=== PATIENT | male | born 1940 | race Caucasian/White ===

== ENCOUNTER 2019-03-02 13:04 | Inpatient (IN) | payer OTHER, MEDICAID ==
[~2019-03-02] VITALS: Ht 177.8 cm; Wt 75.7 kg
[~2019-03-02 13:04] MED LIST: CARV3.1246 PO; DIGO125T79 PO; FAMO20TA8 PO; FAMO40TA7 PO; LIOT25TA11 PO; RAMI2.5C34 PO; RIVA20TA PO
[2019-03-02] MEDS ORDERED: LEVO25TA7 PO (15:06)
--- NOTE | 2019-03-02 15:10 | NUR ---
ADMISSION NOTE Patient was a direct admit from Dr. Houser's office. Patient admitted with diagnosis of aspirtation pneumonia . Patient is awake, alert, oriented X 2 . Patient oriented to hospital room, call light, toileting, pain management and safety-teach back done. Patient informed that will be nurse and that their room number is . Personal belongings checked and Belongings List documented. Call light within reach.
[2019-03-02 15:41] VITALS: BP_SYST 123
[2019-03-02] MEDS ORDERED: ACETAMINOPHEN 325 MG TABLET PO PRN (15:45)
--- NOTE | 2019-03-02 15:45 | NUR ---
CONSULTATION PAGED REASON FOR CONSULTATION:G-TUBE REPLACEMENT WAS CONSULT CALLED?Y PERSON WHO WAS NOTIFIED:BRANDON CONSULTING PHYSICIAN:PEDRO STRAUSS SPACE PHYSICIST SPECIALTY:GI SPACE PHYSICIST PHONE NUMBER:[phone] REQUESTING PHYSICIAN:MICHELLE MARSHALL
--- NOTE | 2019-03-02 15:45 | NUR ---
IV insertion Inserted 22g IV on the right hand using aseptic technique. Patient tolerated well.
[2019-03-02 15:51] LABS: BASOPHILS % (AUTO) 0.3 % (0.0-2.0); EOSINOPHILS # (AUTO) 0.3 K/uL (0.0-0.4); HEMATOCRIT 44.4 % (36-54); HEMOGLOBIN 14.7 g/dL (14.0-18.0); LYMPHOCYTES # (AUTO) 0.8 K/uL (1.0-5.5); LYMPHOCYTES % (AUTO) 16.2 % (20.5-51.5); MEAN CORPUSCULAR HEMOGLOBIN 32 pg (27-31); MEAN CORPUSCULAR HGB CONC 33 % (32-36); MEAN CORPUSCULAR VOLUME 97 fL (79.0-98.0); MONOCYTES # (AUTO) 0.9 K/uL (0.0-1.0); MONOCYTES % (AUTO) 18.1 % (1.7-9.3); NEUTROPHILS # (AUTO) 3.2 K/uL (1.8-7.7); NEUTROPHILS % (AUTO) 60.4 % (40.0-70.0); PLATELET COUNT (AUTO) 180 K/uL (130-430); RED BLOOD CELL COUNT(AUTO) 4.59 MIL/uL (4.2-6.2); RED CELL DISTRIBUTION WIDTH 14.7 % (9.0-15.0); WHITE BLOOD COUNT (AUTO) 5.2 K/uL (4.8-10.8)
[2019-03-02 16:00] VITALS: BP_SYST 123
[2019-03-02] MEDS ORDERED: KETOROLAC TROMETHAMINE 15 MG VIAL ONE (16:03)
[2019-03-02 16:07] LABS: ANION GAP 3 (5-15); CALCIUM 9.5 mg/dL (8.4-11.0); CHLORIDE 107 mmol/L (98-107); CREATININE 0.97 mg/dL (0.55-1.30); GLUCOSE 127 mg/dL (70-99); POTASSIUM 4.2 mmol/L (3.5-5.1); SODIUM SERUM 139 mmol/L (136-145); UREA NITROGEN, BLOOD 30 mg/dL (8-21)
[2019-03-02] MEDS: AZITHROMYCIN 500 MG in NS 250 ML IV SCH (17:02)
--- NOTE | 2019-03-02 18:00 | NUR ---
Tube feeding started Started Jevity 1.2 @ 50. No residuals from G-tube. Tube feeding is to run for [address] Houser's order.
--- NOTE | 2019-03-02 18:47 | NUR ---
Closing Note Patient is resting in bed. Current O2 sat is 95% on 2L. Patient was started in breathing tx. G-tube is running Jevity 1.2 @50. IV is on the right hand 22g, SL. Call light is within reach and bed is in low position. Will endorse care to the oncoming nurse.
--- NOTE | 2019-03-02 19:20 | NUR ---
Initial Note Received patient asleep but easily arousable. Awake, alert and oriented. Bedrest. On O2 at 2L/min via NC. No SOB noted and denies any pain or n/v at this time. Saline lock. NPO. GT feeding infusing. Skin intact and no peripheral edema noted. Repositioned. VS taken and stable. Care and monitoring will be provided. Call light within reach. Bed alarm on and at lowest position at all times. Needs attended. Kept warm and comfortable.
[2019-03-02] MEDS: LevALBUTEROL HCL 1.25 MG/0.5 ML *CONC.* VIAL.NEB (XOPENEX CONC.) INH SCH (19:30)
[2019-03-02 20:00] VITALS: BP_SYST 120
[2019-03-02] MEDS: cefTRIAXone 1 GM in D5W 50 ML IV SCH (20:11)
[2019-03-02] MEDS: guaiFENesin ER 600 MG TAB PO SCH (20:12)
[2019-03-02] MEDS: CARVEDILOL 3.125 MG TABLET (COREG) PO SCH (20:12)
--- NOTE | 2019-03-02 20:37 | NUR ---
RN Note Due meds given, tolerated well. Oral care done for dry mouth. Repositioned. Heels off bed. HOB elevated as requested by patient. Kept comfortable. Addendum: 03/02/19 at 2049 by Brennen Roach RN No residual noted. Flushed free water. IV antibiotic given.
--- NOTE | 2019-03-02 21:30 | NUR ---
RN Note Called patient's Michael and she will come and visit him tomorrow. Patient also asked for his walker and it is at home. No other complaints. Suction was set up. Able to suction himself. Incontinence care done. Barrier cream applied. Kept clean, dry and comfortable.
--- NOTE | 2019-03-02 23:30 | NUR ---
RN Note Incontinence and skin care done. Repositioned. Kept clean, dry and comfortable. No other complaints.
[2019-03-02 23:42] VITALS: BP_SYST 129
[2019-03-03] MEDS: LevALBUTEROL HCL 1.25 MG/0.5 ML *CONC.* VIAL.NEB (XOPENEX CONC.) INH SCH ×4 (00:10→19:54)
--- NOTE | 2019-03-03 00:30 | NUR ---
Incontinence care Incontinence and skin care done. Repositioned. Kept clean, dry and comfortable.
--- NOTE | 2019-03-03 01:30 | NUR ---
RN Note Sleeping at this time. No SOB or grimacing noted.
--- NOTE | 2019-03-03 03:50 | NUR ---
RN Note Patient awake and alert. He wrote that he is dirty. Incontinence and skin care done. Applied barrier cream, repositioned and kept clean and dry. No residual noted. Flushed GT with free water. Suctioned himself through his mouth. Called RT for HHN per patient's request. Needs attended.
--- NOTE | 2019-03-03 04:45 | NUR ---
Sputum collected HHN was given as requested by the patient. Sputum was collected for culture and sent to the lab. Incontinence and skin care done. Repositioned. Kept clean, dry and comfortable.
[2019-03-03] MEDS: LevALBUTEROL HCL 1.25 MG/0.5 ML *CONC.* VIAL.NEB (XOPENEX CONC.) INH PRN ×2 (05:18→17:36)
[2019-03-03] MEDS: LEVOTHYROXINE SODIUM 0.025 MG TABLET PO SCH (06:09)
--- NOTE | 2019-03-03 06:17 | NUR ---
End Note Afebrile. VS stable. No complain of pain, SOB or n/v throughout the night. Coughs occasionally and able to suction himself through the mouth and within reach. On HHN. Repositioned. No BM today. GT feeding will only be until 1400 today. No residual noted. Flushed free water. Heels off bed. Incontinence and skin care provided. Skin, fall and bleeding precautions observed. Care and monitoring provided per protocol. Call light within reach. Bed alarm on and at lowest position at all times. Needs attended. Kept warm and comfortable.
--- NOTE | 2019-03-03 07:46 | NUR ---
OPENING NOTE At initial assessment, patient is sleeping, no s/s of acute distress. Breathing even and unlabored. IV sites on the right hand 22 G patent and intact, saline locked. Gtube feeding running as ordered and tolerating well. Safety, and fall precautions in place, bed low and locked, side rails up x3, call light within reach, will continue to monitor.
[2019-03-03 08:00] VITALS: BP_SYST 120
[2019-03-03] MEDS: guaiFENesin ER 600 MG TAB PO SCH ×2 (08:47→20:21)
[2019-03-03] MEDS: RIVAROXABAN 10 MG TABLET PO SCH (08:48)
[2019-03-03] MEDS: CARVEDILOL 3.125 MG TABLET (COREG) PO SCH ×2 (08:49→20:20)
[2019-03-03] MEDS: DIGOXIN 0.125 MG TABLET PO SCH (08:49)
--- NOTE | 2019-03-03 10:18 | NUR ---
Nutrition Update Haris Scale 15 noted. Pt admitted for pneumonia. Diet: Jevity 1.5 at 50 ml/hr, Free Water Flush: 150 ml q8h via GT + NPO BMI: 24 kg/m2 RD to follow per nutrition care standards.
[2019-03-03 12:00] VITALS: BP_SYST 111
--- NOTE | 2019-03-03 12:31 | NUR ---
ROUNDS Patient is sleeping comfortably in bed, no s/s of acute distress noted. Breathing even and unlabored, receiving 2L O2 via nasal cannula. Tolerating Gtube feeding rate. Safety precautions observed, call light within reach, will continue to monitor.
--- NOTE | 2019-03-03 14:00 | NUR ---
ROUNDS Patient is awake, no c/o pain/discomfort. Breathing even and unlabored. Gtube feeding stopped at this time as ordered and tolerating well. Safety precautions observed, call light within reach, will continue to monitor.
[2019-03-03] MEDS: AZITHROMYCIN 500 MG in NS 250 ML IV SCH (15:18)
--- NOTE | 2019-03-03 15:30 | NUR ---
REFUSED PILLOW SUPPORT Patient is awake, repositioned for comfort. Patient refused pillow support. Will continue to reposition every 2 hours and provide perineal care as needed.
--- NOTE | 2019-03-03 16:10 | NUR ---
PATIENT ASKED TO BE REPOSITIONED PATIENT WAS TURNED TO HIS RIGHT SIDE HE REQUESTED PILLOW WAS PLACED .PATIENT PUSHED THE CALL LIGHT AND ASKED TO REMOVE THE PILLOW AFTER 5 MINUTES OF THE PILLOW BEING PLACED .RN NOTIFIED PATIENT REFUSED TO REPOSITION WILL OFFER AGAIN AT A LATER TIME .
--- NOTE | 2019-03-03 16:13 | NUR ---
ROUNDS Patient is awake, breathing even and unlabored. No respiratory distress noted. No s/s of acute distress. at the bedside. Safety precautions observed, call light within reach.
[2019-03-03 16:20] VITALS: BP_SYST 112
--- NOTE | 2019-03-03 17:06 | NUR ---
Dietitian Recommendations - Recommend Jevity 1.2 at 70 ml/hr, Free Water Flush: 250 ml Q6H which provides 2016 kcal/day and 93 g Pro and 2356 ml water daily. This provides 106% lower end of caloric needs and 102% of higher end protein needs. LP, RD Please refer to Nutrition Assessment for details.
--- NOTE | 2019-03-03 18:25 | NUR ---
CLOSING NOTE Patient is resting with eyes closed, but easily arousable, no s/s of acute distress. No respiratory distress noted, breathing even and unlabored. IV site remains patent and intact, saline locked. GTube feeding running as ordered. Safety and fall precautions in place, bed low and locked, side rails up x3, call light within reach. All needs met and anticipated throughout the shift, will endorse plan of care.
[2019-03-03 20:00] VITALS: BP_SYST 106
--- NOTE | 2019-03-03 20:00 | NUR ---
Opening Notes The patient was sleeping upon initially entering the room. The patient was easily arousable with light touch and name. The patient was alert. The patient is not really able to speak and tries to whisper when communicating. He also communicates by writing on the paper at bedside. Upon assessment, g-tube was not patent. Manually cleared g-tube and now patent/flushes with ease. Patient tolerates well. The patient had even and unlabored breathing. The patient received his breathing treatment while initial assessment took place. The patient did not appear to be in any acute distress. The patient denied any pain. Safety measures/fall precautions in place. HOB elevated, bed lowered, and side rails up. Call light is within reach
[2019-03-03] MEDS: cefTRIAXone 1 GM in D5W 50 ML IV SCH (20:20)
--- NOTE | 2019-03-03 22:00 | NUR ---
Nursing Notes Patient is sleeping in bed. Medications were given through the g-tube. G-tube remains patent and flushes with ease. Patient is tolerating feeding rate. Patient's IV (right hand #22) is saline locked. There are no signs of acute distress. Breathing is even and unlabored. Safety measures/fall precautions in place. HOB elevated, bed in low position, and side rails up. Call light is within reach.
[2019-03-04] VITALS (20 sets, daily range): BP systolic 85–165
--- NOTE | 2019-03-04 | NUR ---
Nursing Notes Patient is sleeping in bed. Does not appear to be in any acute distress. G-tube remains patent with residual of 0. Breathing is even and unlabored. Safety measures/fall precautions in place. Bed lowered, HOB elevated, and side rails up. Call light is within reach.
[2019-03-04] MEDS: LevALBUTEROL HCL 1.25 MG/0.5 ML *CONC.* VIAL.NEB (XOPENEX CONC.) INH SCH ×4 (00:48→19:30)
--- NOTE | 2019-03-04 02:00 | NUR ---
Nursing notes Patient is sleeping. Breathing is even and unlabored. Patient does not appear in acute distress. IV site is clean, patent and dry. IV is saline locked. G-tube remains patent. Safety measures/fall precautions in place. HOB elevated, side rails up, and bed position lowered. Needs addressed.
--- NOTE | 2019-03-04 04:00 | NUR ---
Nursing Notes Patient was asleep but easily aroused as he woke up when we changed the tubing for the g-tube feedings. The patient was alert. Breathing was even and unlabored. The patient did not appear to be in any acute distress. The patient's IV site is patent, clean, and dry. IV is saline locked. The patient's g-tube is patent with a residual of 5. Safety measures/fall precautions in place. HOB elevated, bed in low position, and side rails are up. Call light is in place and needs are addressed. Patient will continue to be assessed and monitored.
[2019-03-04] MEDS: LEVOTHYROXINE SODIUM 0.025 MG TABLET PO SCH (06:05)
--- NOTE | 2019-03-04 06:48 | NUR ---
Closing Notes Patient resting in bed with eyes closed, easily aroused. Patient denies any acute distress or pain at this time. Breathing is even and unlabored. IV site patent/clean/dry, no S/S infection/infiltration noted. Gtube site patent/clean/dry, patient tolerating tube feeding, HOB elevated. Needs addressed throughout shift. Call light in hand, fall precautions in place. Will continue to monitor for changes and safety, and endorse all patient care/needs to oncoming nurse.
--- NOTE | 2019-03-04 07:28 | NUR ---
OPENING NOTE At initial assessment, patient is sleeping comfortably, no s/s of pain/discomfort at this time. Breathing even and unlabored, currently receiving breathing treatment at this time. IV site patent and intact, saline locked. G-Tube feeding running as ordered and tolerating well. Safety and fall precautions in place, bed low and locked, side rails up x2, call light within reach, will continue to monitor.
[2019-03-04] MEDS: CARVEDILOL 3.125 MG TABLET (COREG) PO SCH ×2 (08:43→20:26)
[2019-03-04] MEDS: DIGOXIN 0.125 MG TABLET PO SCH (08:43)
[2019-03-04] MEDS: guaiFENesin ER 600 MG TAB PO SCH ×2 (08:43→20:25)
[2019-03-04] MEDS: RIVAROXABAN 10 MG TABLET PO SCH (08:44)
--- NOTE | 2019-03-04 10:35 | NUR ---
RESPIRATORY DISTRESS RN called by EMBEDDER, patient noted with O2 sat of 41% on 2L O2 via nasal cannula. RT was called, placed patient on nonrebreather mask. Rapid response called. Patient not responding to verbal or tactile command or stimuli. Vital signs taken BP 126/64, pulse 83, blood sugar 174 mg/dL. ER doctor intubated patient at 1042. CO2 level [address] Houser was paged. Patient is sent to ICU. , Michael notified.
--- NOTE | 2019-03-04 10:43 | NUR ---
RT NOTES Pt. intubated by ER w/ 7.5 ETT secured at 23cm lipline. CO2 detector changed to yellow. Bilateral b.s./chest rise noted. @ 1043 pt to vent AC 12 600 100% per ER Dr's order once in ICU. Alarms are set and audible. Post intubation sputum collected. will monitor pt.
--- NOTE | 2019-03-04 10:55 | NUR ---
@1043 RAPID RESPONSE WAS CALLED. PLACED ON NRB 15 LPM FIO2 100%. SPO2 76-78%. @1043 PT WAS INTUBATED BY ER AND TRANSFERRED TO ICU.
--- NOTE | 2019-03-04 10:59 | NUR ---
PAGED STAT PAGED DR PHILLIPS SPOKE WITH TYSHAWN [phone]
--- NOTE | 2019-03-04 11:05 | NUR ---
DR. MUÑOZ NOTIFIED OF PATIENT TRANSFER TO ICU, ORDERS RECEIVED AND CARRIED OUT. WILL CALL DR. LINO TO MANAGE VENT.
--- NOTE | 2019-03-04 11:11 | NUR ---
CONSULTATION CALLED CONSULTING NIMESH LINO SPOKE WITH [place] ORDERING PHYSICIAN: DR MUÑOZ
[2019-03-04] MEDS ORDERED: LORazepam 2 MG/ML VIAL IVP PRN (11:15)
--- NOTE | 2019-03-04 11:45 | NUR ---
Assumed care of pt. Received SBAR report from Shahida CLANCY. Pt in no signs of distress or pain currently but is needing frequent suctioning. Resumed tube feeding and administered H2O flush.
--- NOTE | 2019-03-04 11:50 | NUR ---
PATIENT TRANSFER FROM MED. SURG. POST RAPID RESPONSE. PATIENT CAME IN ORALLY INTUBATED. PLACED COMFORTABLY ON BED, ET TO VENT. ON FIO2 100%, VT 600 AC 12. INITIAL VITALS CHECKED AND RECORDED. SCOPE SHOWS A. FIBRILLATION. WILL CONTINUE TO MONITOR PATIENT. Addendum: 03/04/19 at 1811 by Lakisha Buchanan RN PATIENT CAME IN TO ICU @ 4680
--- NOTE | 2019-03-04 12:05 | NUR ---
RT NOTES Vent settings to AC [address] Green's order. FIO2 titrated to 70% per order to titrate O2 keep saturation >92% RN aware.
[2019-03-04] MEDS ORDERED: 0.45% NACL 1,000 ML IV SCH (12:15)
[2019-03-04 12:46] LABS: BASOPHILS % (AUTO) 0.2 % (0.0-2.0); EOSINOPHILS # (AUTO) 0.1 K/uL (0.0-0.4); EOSINOPHILS % (AUTO) 1.7 % (0.0-4.0); HEMOGLOBIN 14.2 g/dL (14.0-18.0); LYMPHOCYTES # (AUTO) 0.7 K/uL (1.0-5.5); LYMPHOCYTES % (AUTO) 8.3 % (20.5-51.5); MEAN CORPUSCULAR HEMOGLOBIN 32 pg (27-31); MEAN CORPUSCULAR HGB CONC 33 % (32-36); MEAN CORPUSCULAR VOLUME 97 fL (79.0-98.0); MONOCYTES # (AUTO) 0.8 K/uL (0.0-1.0); MONOCYTES % (AUTO) 9.5 % (1.7-9.3); NEUTROPHILS # (AUTO) 6.6 K/uL (1.8-7.7); NEUTROPHILS % (AUTO) 80.3 % (40.0-70.0); PLATELET COUNT (AUTO) 183 K/uL (130-430); RED BLOOD CELL COUNT(AUTO) 4.43 MIL/uL (4.2-6.2); RED CELL DISTRIBUTION WIDTH 14.4 % (9.0-15.0); WHITE BLOOD COUNT (AUTO) 8.2 K/uL (4.8-10.8)
[2019-03-04 12:58] LABS: ANION GAP 7 (5-15); CALCIUM 9.1 mg/dL (8.4-11.0); CHLORIDE 106 mmol/L (98-107); CREATININE 1.05 mg/dL (0.55-1.30); GLUCOSE 132 mg/dL (70-99); POTASSIUM 4.9 mmol/L (3.5-5.1); SODIUM SERUM 142 mmol/L (136-145); UREA NITROGEN, BLOOD 29 mg/dL (8-21)
[2019-03-04] MEDS ORDERED: PIPERACILLIN/TAZO 3.375/DEX-IS 50 ML IV ONE (13:00)
[2019-03-04] MEDS ORDERED: methylPREDNISolone SOD SUCC 40 MG/ML VIAL IVP ONE (13:00)
--- NOTE | 2019-03-04 13:00 | NUR ---
BUCKNER CATH: # 16 FR Buckner catheter with 10 cc bulb inserted with use of sterile technique. Bulb inflated with 10 cc sterile water. Immediate return of yellow urine noted. Bedside drainage bag placed below level of bladder. Urine sample collected and sent to lab. Pt tolerated procedure well.
[2019-03-04 13:06] LABS: ALANINE AMINOTRANSFERASE 48 U/L (12-78); ALBUMIN 2.2 g/dL (3.4-4.8); ASPARTATE AMINOTRANSFERASE 45 U/L (10-37); TOTAL BILIRUBIN 0.6 mg/dL (0.0-1.0)
[2019-03-04] MEDS ORDERED: ACETAMINOPHEN 650 MG/20.3 ML UDC GT PRN (13:15)
[2019-03-04] MEDS: IPRATROPIUM BROM 0.5 MG/2.5 ML VIAL.NEB (ATROVENT) INH SCH ×2 (13:16→19:30)
--- NOTE | 2019-03-04 13:16 | NUR ---
RT NOTES FIO2 to 60% per titration order. No adverse reactions noted. Will monitor pt. Addendum: 03/04/19 at 1338 by Brisa Cr RT Amended: Links added.
--- NOTE | 2019-03-04 13:30 | NUR ---
Administered CHG bath and skin care.
[2019-03-04] MEDS ORDERED: VANCOMYCIN HCL 1,500 MG in NS 250 ML IV SCH (15:00)
[2019-03-04] MEDS ORDERED: ASPIRIN 81 MG TAB.CHEW GT ONE (15:00)
[2019-03-04] MEDS: MORPHINE 4 MG/ML INJ. SYRINGE IVP PRN (15:11)
--- NOTE | 2019-03-04 15:32 | NUR ---
RT NOTES FIO2 TO 50% per titration order. No adverse reactions noted. @1535 Push ETT 1cm down, secured at 24cm per order. No adverse reactions noted. Bilateral B.S/chest rise noted. Addendum: 03/04/19 at 1551 by Brisa Cr RT Amended: Links added.
--- NOTE | 2019-03-04 15:35 | NUR ---
Vent change: ETT 24 cm lip line, FiO2 changed to 50% by Brisa SUMNER per Dr. Green's orders
[2019-03-04 16:06] LABS: BILIRUBIN,URINE NEGATIVE (NEGATIVE); CLARITY/URINE CLEAR (CLEAR); COLOR,URINE YELLOW (YELLOW); GLUCOSE,URINE NEGATIVE (NEGATIVE); KETONES,URINE NEGATIVE (NEGATIVE); LEUKOCYTE ESTERASE ,URINE NEGATIVE (NEGATIVE); NITRITE, URINE NEGATIVE (NEGATIVE); PROTEIN URINE 1+ (NEGATIVE); UROBILINOGEN,URINE 0.2 (0.2-1.0)
[2019-03-04 16:09] LABS: BLOOD, URINE TRACE (NEGATIVE)
[2019-03-04 16:12] LABS: BACTERIA,URINE FEW /HPF (None Seen); MUCUS,URINE None Seen /LPF (None Seen); WBC,URINE 0-3 /HPF (0-3)
--- NOTE | 2019-03-04 17:17 | NUR ---
CALLED PAGED DR MUÑOZ REGARDING STAT ORDERS
[2019-03-04] MEDS ORDERED: NOREPINEPHRINE BITARTRATE 4 MG in NS 246 ML IV PRN (17:30)
[2019-03-04] MEDS ORDERED: NS 500 ML IV ONE (17:30)
[2019-03-04] MEDS ORDERED: PIPERACILLIN/TAZO 3.375/DEX-IS 50 ML IV SCH (18:00)
--- NOTE | 2019-03-04 18:00 | NUR ---
Resumed tube feeding, administered H2O flush. Pt in no signs of pain or distress.
[2019-03-04] MEDS: PIPERACILLIN/TAZO 3.375/DEX-IS 50 ML IV SCH ×2 (18:21→23:06)
[2019-03-04] MEDS: KCL 20 mEq in D5NS 1000 mL 1,000 ML IV SCH (18:21)
--- NOTE | 2019-03-04 19:12 | NUR ---
Endorsed plan of care to Destin CLANCY via SBAR and bedside round. Pt's daughter at bedside. No signs of pain or distress noted.
--- NOTE | 2019-03-04 19:35 | NUR ---
PM Assessment Pt in bed. AAO. Pt able to follow commands, but unable to speak d/t intubation. Makes request through gestures and/or writing. Pt is 100% Paced. Pt has Vent. Settings: ETT 7.5, AC 16, FIO2 50%, TV 450, PEEP 5. Pt saturating in the high 90s. Pt has KELSEY 18g and RT hand 22g in palce. Sites C/D/I. No s/s of infiltration noted. Pt has G-tube in place running Jevity 1.2 @70mL/hr. No residual noted. Pt has Gil catheter in place draining yellow urine to gravity. Bed locked in lowest position, safety precautions in place, and call light in reach. Will continue to monitor.
[2019-03-04] MEDS: PANTOPRAZOLE SODIUM 40 MG/VIAL (PROTONIX) IVP SCH (20:25)
[2019-03-04] MEDS: AZITHROMYCIN 500 MG in NS 250 ML IV SCH (20:25)
[2019-03-04] MEDS: methylPREDNISolone SOD SUCC 40 MG/ML VIAL IVP SCH (23:06)
[2019-03-05] VITALS (30 sets, daily range): BP systolic 98–136
[2019-03-05] MEDS: LevALBUTEROL HCL 1.25 MG/0.5 ML *CONC.* VIAL.NEB (XOPENEX CONC.) INH SCH ×4 (01:08→19:55)
[2019-03-05] MEDS: IPRATROPIUM BROM 0.5 MG/2.5 ML VIAL.NEB (ATROVENT) INH SCH ×4 (01:09→19:55)
--- NOTE | 2019-03-05 02:10 | NUR ---
RN Rounds Pt in bed asleep. No s/s of distress noted. VSS. No change in vent settings. Will continue to monitor.
[2019-03-05] MEDS: KCL 20 mEq in D5NS 1000 mL 1,000 ML IV SCH ×3 (03:07→23:17)
[2019-03-05] MEDS: LevALBUTEROL HCL 1.25 MG/0.5 ML *CONC.* VIAL.NEB (XOPENEX CONC.) INH PRN (03:10)
[2019-03-05 05:14] LABS: BASOPHILS % (AUTO) 0.2 % (0.0-2.0); HEMATOCRIT 42.7 % (36-54); HEMOGLOBIN 13.8 g/dL (14.0-18.0); LYMPHOCYTES # (AUTO) 0.5 K/uL (1.0-5.5); LYMPHOCYTES % (AUTO) 9.5 % (20.5-51.5); MEAN CORPUSCULAR HEMOGLOBIN 32 pg (27-31); MEAN CORPUSCULAR HGB CONC 32 % (32-36); MEAN CORPUSCULAR VOLUME 98 fL (79.0-98.0); MONOCYTES # (AUTO) 0.2 K/uL (0.0-1.0); MONOCYTES % (AUTO) 3.6 % (1.7-9.3); NEUTROPHILS # (AUTO) 4.3 K/uL (1.8-7.7); NEUTROPHILS % (AUTO) 86.7 % (40.0-70.0); PLATELET COUNT (AUTO) 165 K/uL (130-430); RED BLOOD CELL COUNT(AUTO) 4.34 MIL/uL (4.2-6.2); RED CELL DISTRIBUTION WIDTH 14.8 % (9.0-15.0)
[2019-03-05 05:17] LABS: ANION GAP 8 (5-15); CALCIUM 8.4 mg/dL (8.4-11.0); CHLORIDE 107 mmol/L (98-107); CREATININE 1.16 mg/dL (0.55-1.30); GLUCOSE 299 mg/dL (70-99); POTASSIUM 4.9 mmol/L (3.5-5.1); SODIUM SERUM 142 mmol/L (136-145); UREA NITROGEN, BLOOD 32 mg/dL (8-21)
[2019-03-05 05:26] LABS: ALANINE AMINOTRANSFERASE 46 U/L (12-78); ASPARTATE AMINOTRANSFERASE 37 U/L (10-37); TOTAL BILIRUBIN 0.6 mg/dL (0.0-1.0)
[2019-03-05] MEDS: methylPREDNISolone SOD SUCC 40 MG/ML VIAL IVP SCH ×3 (06:12→21:55)
[2019-03-05] MEDS: PIPERACILLIN/TAZO 3.375/DEX-IS 50 ML IV SCH ×4 (06:13→23:17)
--- NOTE | 2019-03-05 06:25 | NUR ---
MD called SPoke with Dr. Green regarding Pt's self extubation, and results from ABGs. MD aware and no new orders noted. Dr. Green to be called with results from Chest X-ray. Will endorse to oncoming RN.
--- NOTE | 2019-03-05 06:55 | NUR ---
Closing Note Pt in bed AAO. Pt 100% paced. ON NC @3L saturating in the mid 90s. Pt having SOB, and audible crackles noted as of 0645. RT in to give breathing Tx. Pt has KELSEY 18g in place. Site is C/D/I. No s/s of infiltration noted. Rt hand 22g d/c'ed d/t bleeding. Pt has sánchez catheter draining yellow to gravity. Pt has G-tube in place. Feeding on hold, d/t to residual of 170ml. To be checked @0730. Bed locked in lowest position, safety precautions in place, and call light in reach, Will endorse to oncoming RN.
--- NOTE | 2019-03-05 07:05 | NUR ---
Spoke to Venkata from Pharmacy. Made aware of Synthroid not in Pyxsis. Noted and told he would replace it. Will endorse administration of medication to oncoming Nurse.
--- NOTE | 2019-03-05 07:26 | NUR ---
Endorsement Report given to oncoming nurse at bedside via SBAR approach.
--- NOTE | 2019-03-05 07:45 | NUR ---
Patient noted to be short of breath. Head of bed up for comfort. Pt verbalizes, " hard to breath". RT at bedside for ABG. Will call ER MD to evaluate patient and re-intubate patient if needed. Call placed to Dr. Green for orders.
--- NOTE | 2019-03-05 07:46 | NUR ---
AM ASSESSMENT. PATIENT VERBALIZED THRU WRITING HIS WORDS ON A PIECE OF PAPER, DYSPNEIC, REPOSITIONED UP IN BED TO IMPROVE HIS BREATHING, STAYED WITH PATIENT, CONTINUE TO MONITOR.
--- NOTE | 2019-03-05 07:56 | NUR ---
Intubation RT, RN, ER MD at bedside. Rales bilat lungs, pt lethargic. Pt not know to be of DNR status. 7.[address] Michelle, +CO2 exchange, lung sounds present bilaterally. 23cm at the lip. Pt given 60mg Succ prior to intubation for sedation.
--- NOTE | 2019-03-05 07:56 | NUR ---
RT NOTES Pt. was intubated by Dr Forrest w/ 7.5 ETT secured at 23cm. CO2 detector changed to yellow. Bilat. b/s/chest rise noted. Placed pt on vent AC 16 450 +5 same settings pt was on and ok'd by Dr Forrest. Per splicer machine operatorASTON Pinedo, FIO2 to 100%.
--- NOTE | 2019-03-05 07:58 | NUR ---
Dr. Green updated on patient present condition, with orders carried out.
[2019-03-05] MEDS ORDERED: MIDAZOLAM HCL 2 MG/2 ML VIAL (VERSED) IVP ONE (08:00)
[2019-03-05] MEDS ORDERED: SUCCINYLCHOLINE CHLORIDE 20 MG/ML(QUELICIN) IVP ONE ×2 (08:00→11:17)
[2019-03-05] MEDS ORDERED: MIDAZOLAM HCL 2 MG/2 ML VIAL (VERSED) ONE (08:07)
[2019-03-05] MEDS: LORazepam 2 MG/ML VIAL IVP PRN ×6 (08:23→23:16)
--- NOTE | 2019-03-05 08:23 | NUR ---
MEDS. ATIVAN 1 MG IVP GIVEN FOR PT'S RESTLESSNESS, WILL CONTINUE TO MONITOR.
--- NOTE | 2019-03-05 08:44 | NUR ---
GASTRO ENTEROLOGIST. DR SALAZAR IN THE ROOM, EXAMINED PT. NEW ORDERS RECEIVED, TO RESUME TUBE FEEDING AT 10 ML PER HOUR, IF GASTRIC RESIDUAL IS LESS THAN 100 ML, THEN MAY GRADUALLY INCREASE TO 10 ML Q2H, TO REACH THE GOAL OF 70 ML PER HOUR. WATER FLUSHES 50 ML QH.
[2019-03-05] MEDS: CARVEDILOL 3.125 MG TABLET (COREG) PO SCH ×2 (09:00→20:50)
--- NOTE | 2019-03-05 09:15 | NUR ---
RT NOTES FIO2 to 70% per ABG results and outstanding titration order. No adverse reactions noted. Will monitor pt. Addendum: 03/05/19 at 0939 by Brisa Cr RT Amended: Links added.
--- NOTE | 2019-03-05 09:28 | NUR ---
Vent settings to AC [address] Green's order. Will monitor pt.
[2019-03-05] MEDS: PANTOPRAZOLE SODIUM 40 MG/VIAL (PROTONIX) IVP SCH ×2 (09:50→20:50)
[2019-03-05] MEDS: DIGOXIN 0.125 MG TABLET PO SCH (09:51)
[2019-03-05] MEDS: LEVOTHYROXINE SODIUM 0.025 MG TABLET PO SCH (09:51)
[2019-03-05] MEDS: guaiFENesin ER 600 MG TAB PO SCH (09:51)
[2019-03-05] MEDS: MORPHINE 4 MG/ML INJ. SYRINGE IVP PRN ×2 (09:58→17:50)
--- NOTE | 2019-03-05 09:58 | NUR ---
MEDS. MORPHINE 2 MG IVP GIVEN FOR PATIENT'S COMFORT.
[2019-03-05] MEDS: RIVAROXABAN 10 MG TABLET PO SCH (11:12)
--- NOTE | 2019-03-05 11:25 | NUR ---
FIO2 to 60%. Will monitor pt Addendum: 03/05/19 at 1150 [address] Brisa Cr RT Amended: Links added.
--- NOTE | 2019-03-05 12:30 | NUR ---
INFECTIOUS DISEASE . DR PAZ CAME IN TO EVALUATE PATIENT. NEW ORDERS RECEIVED, DECREASE IVF TO 100 ML PER HR.
--- NOTE | 2019-03-05 15:35 | NUR ---
FIO2 to 50% Addendum: 03/05/19 at 1601 by Brisa Cr RT Amended: Links added.
--- NOTE | 2019-03-05 16:37 | NUR ---
Nutrition F/U Admitting Diagnosis Pneumonia Reviewed Pertinent Medical/Surgical Hx Medical Record Patient Family Member Primary RN Medical History Comment: PMH per MD note: congenital destructive muscular dystrophy, paroxysmal atrial fibrilation, hypothyroidism, asthma Updated per MD note: aspiration pneumonia, paroxysmal atrial fibrillation, dysphagia Subjective Information Pt seen sleeping with RN and [id number] at bedside upon visit. Bed wt recorded at 171 lbs, which may be skewed d/t blankets and pillows on the bed. TF seen infusing at 20 ml/hr with a total of 33 ml delivered so far today. Per EMR, IV total: 1650 ml and TF total 600 ml; abdomen noted as soft, non-distended and active bowel sounds present. Per RN, pt is tolerating TF besides residuals of 170 ml this AM in which the TF was stopped. Current TF regimen provides: 576 kcals, 27 g Pro, and 387 ml/day which meets 29% of lower end calorie needs and 28% of lower end protein needs. Current Diet Order/Nutrition Support Jevity 1.2 at 10 ml/hr, increase Q2H to 10 ml more til max of 70 Free Water Flush: 50 ml q6h via GT x0 day Patient/Significant Other Unable To Verbalize Education Provided Not Indicated Pertinent Medications Synthroid, Azithromycin, Solu-medrol, protonix IV Pertinent Labs BG 299 H, POC BG 174 H, Alb 2 L BUN 32 H Height (Feet) 5 feet Height (Inches) 10.00 inches Weight (Pounds) 167 pounds Weight (Calculated Kilograms) 75.878692 kilograms Patient Weight 75.75 kg Body Mass Index 23.96 kg/m2 %IBW 101 [place]/Adjusted Body Weight IBW: 166 lbs, 75 kg Recent Weight Change No - Per RN note; unable to verify Weight Status Appropriate Difficulty With: Swallowing Food Allergies unable to verify Usual Diet At Home GT -- no formula specified via EMR Skin Integrity Comment: Haris Score: 15 w/ coccyx erythema Current % PO NPO NEW Estimated Energy Expenditure (kcals/day) 1996 kcal/day (PSU used for intubated/critical illness) NEW Estimated Protein Required (g/day) 98-152 g/day (1.3-2 g/kg CBW for vent support) NEW Estimated Fluid Required (l/day) 1.9 L/day (25 ml/kg CBW for geriatric maintenance) Problem/Etiology/Signs/Symptoms (modified) Inadequate enteral nutrition related to current tube feeding regimen as evidenced by currently infusing TF meets 30% of lower end calorie needs and 36% of lower end protein needs. Expected Outcomes/Goals - Monitor pt tube feeding tolerance w/ goal of pt meeting at least 50% estimated nutritional needs, labs trending WNL, skin integrity, and wt maintenance. *Ongoing Dietitian Recommendations - Recommend Jevity 1.2 at 70 ml/hr, Free Water Flush: 50 ml Q6H which provides 2016 kcal/day and 93 g Pro and 1556 ml water daily. This provides 101% of estimated caloric needs and 95% of lower end of estimatedprotein needs. Follow Up High Risk: F/U in 2-3 days Signed: 03/05/19 at 1637 by Darleen QUINTANILLA <Co-Signature Required> Co-Signed: 03/05/19 at [address]
--- NOTE | 2019-03-05 17:15 | NUR ---
FIO2 to 40% Addendum: 03/05/19 at 1742 by Brisa Cr RT Amended: Links added.
--- NOTE | 2019-03-05 17:22 | NUR ---
Dietitian Recommendations - Recommend Jevity 1.2 at 70 ml/hr, Free Water Flush: 50 ml Q6H which provides 2016 kcal/day and 93 g Pro and 1556 ml water daily. This provides 101% of estimated caloric needs and 95% of lower end of estimated protein needs. LP, RD Please refer to Nutrition F/U for details.
--- NOTE | 2019-03-05 17:35 | NUR ---
MEDS. OBSERVED PT TRYING TO TURN HIS SHOULDER TO THE SIDE AND LIFTING HIS LEG, ATIVAN 1 MG IVP GIVEN, REPOSITIONED IN BED TO PREVENT PATIENT FROM ANY INJURY.
--- NOTE | 2019-03-05 17:50 | NUR ---
MEDS MEDICATED PATIENT WITH MORPHINE 2 MG IVP, PT NOTED WITH INCREASE AGITATION, ALL LINENS WERE PUSHED DOWN TO HIS BOTTOM PART OF THE BED, CHANGED PT'S POSITION.
--- NOTE | 2019-03-05 18:30 | NUR ---
ANXIETY. PT UNCOOPERATIVE, MOVING HIS ARMS TOWARDS HIS FACE DESPITE TEACHINGS, RESTRAINTS TO WRISTS APPLIED TO KEEP TUBES INTACT.
[2019-03-05] MEDS: AZITHROMYCIN 500 MG in NS 250 ML IV SCH (18:35)
--- NOTE | 2019-03-05 19:30 | NUR ---
PM ASSESSMENT Pt in bed w/ eyes closed resting comfortably. No signs of acute distress or discomfort noted. VSS w/ paced seen on the monitor. 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 Pt intubated w/ vent settings: AC 20, TV 450, FIO2 40%, and PEEP of 5, tolerating well w/ O2 sats 100% and even and unlabored breathing. Pt has a R UA IV 18g, c/d/i. Pt has a g tube infusing tubefeeding, site c/d/i. Bilateral wrist restraints noted. Gil cath noted draining urine to gravity. Pt doesn't verbalize any other needs at this time. Bed is locked and in lowest position, call light w/in reach will continue to monitor.
[2019-03-05] MEDS: MUPIROCIN 2% TOPICAL OINTMENT 22 GM NS SCH (20:50)
--- NOTE | 2019-03-05 23:16 | NUR ---
Pt appearing restless at this time. Medicated pt w/ ativan IVP per MD order. Pt tolerated well, will continue to monitor.
[2019-03-06] VITALS (34 sets, daily range): BP systolic 113–157
[2019-03-06] MEDS: LORazepam 2 MG/ML VIAL IVP PRN ×9 (00:40→23:48)
[2019-03-06] MEDS: MORPHINE 4 MG/ML INJ. SYRINGE IVP PRN ×3 (01:03→18:56)
[2019-03-06] MEDS: IPRATROPIUM BROM 0.5 MG/2.5 ML VIAL.NEB (ATROVENT) INH SCH ×4 (01:38→19:44)
[2019-03-06] MEDS: LevALBUTEROL HCL 1.25 MG/0.5 ML *CONC.* VIAL.NEB (XOPENEX CONC.) INH SCH ×4 (01:38→19:44)
--- NOTE | 2019-03-06 04:10 | NUR ---
CHG CHG bath given to pt at this time. Pt tolerated well. Will continue to monitor pt.
[2019-03-06] MEDS: methylPREDNISolone SOD SUCC 40 MG/ML VIAL IVP SCH ×3 (05:34→21:47)
[2019-03-06] MEDS: PIPERACILLIN/TAZO 3.375/DEX-IS 50 ML IV SCH ×4 (05:34→23:51)
--- NOTE | 2019-03-06 06:00 | NUR ---
IV PLACEMENT: #22 gauge angiocath placed to Left AC. Use of asceptic technique. Opsite placed over site. Blood return noted. Flushed with 10cc of normal saline. No evidence of infiltration noted. Patient tolerated well. Will continue to monitor.
[2019-03-06] MEDS: LEVOTHYROXINE SODIUM 0.025 MG TABLET PO SCH (06:16)
[2019-03-06 06:26] LABS: BASOPHILS % (AUTO) 0.1 % (0.0-2.0); EOSINOPHILS % (AUTO) 0.1 % (0.0-4.0); HEMATOCRIT 40.4 % (36-54); HEMOGLOBIN 13.1 g/dL (14.0-18.0); LYMPHOCYTES # (AUTO) 0.5 K/uL (1.0-5.5); LYMPHOCYTES % (AUTO) 7.7 % (20.5-51.5); MEAN CORPUSCULAR HEMOGLOBIN 32 pg (27-31); MEAN CORPUSCULAR HGB CONC 32 % (32-36); MEAN CORPUSCULAR VOLUME 98 fL (79.0-98.0); MONOCYTES # (AUTO) 0.3 K/uL (0.0-1.0); NEUTROPHILS # (AUTO) 5.4 K/uL (1.8-7.7); NEUTROPHILS % (AUTO) 87.1 % (40.0-70.0); PLATELET COUNT (AUTO) 175 K/uL (130-430); RED BLOOD CELL COUNT(AUTO) 4.11 MIL/uL (4.2-6.2); RED CELL DISTRIBUTION WIDTH 14.4 % (9.0-15.0); WHITE BLOOD COUNT (AUTO) 6.2 K/uL (4.8-10.8)
[2019-03-06 06:36] LABS: ANION GAP 3 (5-15); CALCIUM 7.6 mg/dL (8.4-11.0); CHLORIDE 114 mmol/L (98-107); CREATININE 0.91 mg/dL (0.55-1.30); GLUCOSE 227 mg/dL (70-99); POTASSIUM 4.7 mmol/L (3.5-5.1); SODIUM SERUM 146 mmol/L (136-145); UREA NITROGEN, BLOOD 26 mg/dL (8-21)
[2019-03-06 06:43] LABS: ALANINE AMINOTRANSFERASE 54 U/L (12-78); ALBUMIN 1.9 g/dL (3.4-4.8); ASPARTATE AMINOTRANSFERASE 35 U/L (10-37); TOTAL BILIRUBIN 0.3 mg/dL (0.0-1.0)
--- NOTE | 2019-03-06 07:15 | NUR ---
ENDORSEMENT Report given to Annalee CLANCY using SBAR format and pt care was endorsed. Pt in bed w/ eyes closed resting comfortably. No signs of acute distress or discomfort noted.
--- NOTE | 2019-03-06 07:20 | NUR ---
Opening Note Patient received asleep in bed. Patient on security monitor with A-fib. Patient intubated and on mechanical ventilator with settings of AC 20, TV 450, FiO2 40%, PEEP 5. Patient has a right upper arm 18 gauge IV infusing D5 NS w/ 20 meq KCL @ 100 ml/hr. Patient also has a left AC 22 gauge IV patent, flushing, and saline-locked. Patient has a g-tube infusing Jevity 1.2 @ 70 ml/hr. Patient has a sánchez catheter draining yellow urine. Skin intact. Safety precautions observed. Patient on contact isolation.
--- NOTE | 2019-03-06 07:30 | NUR ---
RN Update RT observed @ bedside. No distress noted.
[2019-03-06] MEDS: DIGOXIN 0.125 MG TABLET PO SCH (08:20)
[2019-03-06] MEDS: PANTOPRAZOLE SODIUM 40 MG/VIAL (PROTONIX) IVP SCH ×2 (08:20→20:13)
[2019-03-06] MEDS: MUPIROCIN 2% TOPICAL OINTMENT 22 GM NS SCH ×2 (08:21→20:13)
[2019-03-06] MEDS: CARVEDILOL 3.125 MG TABLET (COREG) PO SCH ×2 (08:21→20:14)
[2019-03-06] MEDS: RIVAROXABAN 10 MG TABLET PO SCH (08:40)
--- NOTE | 2019-03-06 10:00 | NUR ---
RT NOTES- 30%FIO2 DECREASED FIO2 TO 30%. RN LYLE MADE AWARE.
--- NOTE | 2019-03-06 10:05 | NUR ---
Vent settings update FiO2 changed to 30%. Patient tolerating well. No signs of distress noted.
[2019-03-06] MEDS: KCL 20 mEq in D5NS 1000 mL 1,000 ML IV SCH (10:27)
--- NOTE | 2019-03-06 12:00 | NUR ---
RN Update Patient sleeping comfortably in bed. No signs of agitation or distress noted. Safety precautions enforced.
--- NOTE | 2019-03-06 14:10 | NUR ---
MD Rounds Dr. Green @ bedside. New orders received and will be carried out.
--- NOTE | 2019-03-06 15:15 | NUR ---
RT NOTES- SIMV SETTING PT PLACED ON SIMV 10, PS10, PEEP 5, FIO2 30% PER DR. LINO. TOLERATING SETTING WELL. RN LYLE MADE AWARE. WILL CONTINUE MONITORING.
--- NOTE | 2019-03-06 15:15 | NUR ---
Vent setting update Vent settings changed per MD order. Patient tolerating well. No signs of acute distress noted.
--- NOTE | 2019-03-06 19:06 | NUR ---
Closing Note Patient endorsed to second shift supervisor RN using SBAR format. Patient medicated for anxiety. Will continue to monitor. Safety and contact precautions observed.
--- NOTE | 2019-03-06 19:15 | NUR ---
PM ASSESSMENT Pt in bed w/ eyes closed resting comfortably. No signs of acute distress or discomfort noted. VSS w/ paced seen on the monitor. 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 Pt intubated w/ vent settings: SIMV 10, TV 450, FIO2 30%, PEEP of 5, and PS 10 tolerating well w/ O2 sats 97% and even and unlabored breathing. Pt has a R UA IV 18g and L AC 22g c/d/i. Pt has a g tube infusing tubefeeding, site c/d/i. Bilateral wrist restraints noted. Gil cath noted draining urine to gravity. Pt doesn't verbalize any other needs at this time. Bed is locked and in lowest position, call light w/in reach will continue to monitor.
[2019-03-06] MEDS: LINEZOLID 300 ML IV SCH (20:14)
--- NOTE | 2019-03-06 20:43 | NUR ---
ELLIOTT machine placed on pt's bed. pt tolerated well, will continue to monitor.
--- NOTE | 2019-03-06 22:00 | NUR ---
CHG CHG bath given to pt at this time. Pt tolerated well, will continue to monitor.
[2019-03-07] VITALS (30 sets, daily range): BP systolic 125–168
[2019-03-07] MEDS: MORPHINE 4 MG/ML INJ. SYRINGE IVP PRN ×2 (00:07→21:51)
[2019-03-07] MEDS: LevALBUTEROL HCL 1.25 MG/0.5 ML *CONC.* VIAL.NEB (XOPENEX CONC.) INH SCH ×4 (01:05→20:01)
[2019-03-07] MEDS: IPRATROPIUM BROM 0.5 MG/2.5 ML VIAL.NEB (ATROVENT) INH SCH ×4 (01:05→20:01)
[2019-03-07] MEDS: KCL 20 mEq in D5NS 1000 mL 1,000 ML IV SCH (02:26)
[2019-03-07] MEDS: LORazepam 2 MG/ML VIAL IVP PRN ×5 (03:06→21:50)
--- NOTE | 2019-03-07 03:06 | NUR ---
Pt getting restless at this time, kicking linens and pillows off the bed. Medicated pt w/ ativan per MD order. Pt tolerated well, will continue to monitor.
[2019-03-07] MEDS: PIPERACILLIN/TAZO 3.375/DEX-IS 50 ML IV SCH ×4 (05:05→23:54)
[2019-03-07] MEDS: methylPREDNISolone SOD SUCC 40 MG/ML VIAL IVP SCH ×2 (05:05→20:45)
[2019-03-07 05:14] LABS: BASOPHILS % (AUTO) 0.2 % (0.0-2.0); EOSINOPHILS % (AUTO) 0.7 % (0.0-4.0); HEMOGLOBIN 13.3 g/dL (14.0-18.0); LYMPHOCYTES # (AUTO) 0.7 K/uL (1.0-5.5); LYMPHOCYTES % (AUTO) 12.3 % (20.5-51.5); MEAN CORPUSCULAR HEMOGLOBIN 32 pg (27-31); MEAN CORPUSCULAR HGB CONC 32 % (32-36); MEAN CORPUSCULAR VOLUME 98 fL (79.0-98.0); MONOCYTES # (AUTO) 0.3 K/uL (0.0-1.0); MONOCYTES % (AUTO) 4.7 % (1.7-9.3); NEUTROPHILS # (AUTO) 4.7 K/uL (1.8-7.7); NEUTROPHILS % (AUTO) 82.1 % (40.0-70.0); PLATELET COUNT (AUTO) 187 K/uL (130-430); RED CELL DISTRIBUTION WIDTH 14.6 % (9.0-15.0); WHITE BLOOD COUNT (AUTO) 5.8 K/uL (4.8-10.8)
--- NOTE | 2019-03-07 05:30 | NUR ---
IV PLACEMENT: #20 gauge angiocath placed to pt's left Upper Arm. Use of asceptic technique. Opsite placed over site. Blood return noted. Flushed with 10cc of normal saline. No evidence of infiltration noted. Patient tolerated well. Will continue to monitor.
[2019-03-07 05:50] LABS: ANION GAP 2 (5-15); CALCIUM 7.9 mg/dL (8.4-11.0); CHLORIDE 115 mmol/L (98-107); CREATININE 0.86 mg/dL (0.55-1.30); GLUCOSE 196 mg/dL (70-99); POTASSIUM 4.9 mmol/L (3.5-5.1); SODIUM SERUM 144 mmol/L (136-145); UREA NITROGEN, BLOOD 26 mg/dL (8-21)
[2019-03-07] MEDS: LEVOTHYROXINE SODIUM 0.025 MG TABLET PO SCH (06:11)
--- NOTE | 2019-03-07 07:15 | NUR ---
ENDORSEMENT Report given to Elijah CLANCY using SBAR format and pt care was endorsed. Pt in bed w/ eyes closed resting comfortably, no signs of acute distress or discomfort noted.
--- NOTE | 2019-03-07 07:24 | NUR ---
Opening Note Received plan of care from endorsing nurse, Eric CLANCY. Completed patient round.
[2019-03-07] MEDS: RIVAROXABAN 10 MG TABLET PO SCH (09:24)
[2019-03-07] MEDS: DIGOXIN 0.125 MG TABLET PO SCH (09:28)
[2019-03-07] MEDS: CARVEDILOL 3.125 MG TABLET (COREG) PO SCH ×2 (09:28→20:47)
[2019-03-07] MEDS: LINEZOLID 300 ML IV SCH ×2 (09:29→20:45)
[2019-03-07] MEDS: PANTOPRAZOLE SODIUM 40 MG/VIAL (PROTONIX) IVP SCH ×2 (09:29→20:45)
[2019-03-07] MEDS ORDERED: FUROSEMIDE 20 MG/2 ML VIAL IVP ONE (09:30)
[2019-03-07] MEDS: MUPIROCIN 2% TOPICAL OINTMENT 22 GM NS SCH ×2 (09:30→20:45)
--- NOTE | 2019-03-07 09:30 | NUR ---
Dr. Green at bedside with pt. Received new orders.
--- NOTE | 2019-03-07 13:45 | NUR ---
Dr. Montalvo at bedside. No new orders received.
--- NOTE | 2019-03-07 19:15 | NUR ---
PM ASSESSMENT Pt in bed w/ eyes closed resting comfortably. No signs of acute distress or discomfort noted. VSS w/ paced seen on the monitor. 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 Pt intubated w/ vent settings: SIMV 4, TV 450, FIO2 30%, PEEP of 5, and PS 10 tolerating well w/ O2 sats 98% and even and unlabored breathing. Pt has a R UA IV 18g, L AC 22g AND L UA 20g, c/d/i. Pt has a g tube infusing tubefeeding, site c/d/i. Bilateral wrist restraints noted. Gil cath noted draining urine to gravity. Pt doesn't verbalize any other needs at this time. Bed is locked and in lowest position, call light w/in reach will continue to monitor.
[2019-03-08] VITALS (28 sets, daily range): BP systolic 139–179
--- NOTE | 2019-03-08 | NUR ---
Pt in bed w/ eyes closed resting comfortably, no signs of acute distress or discomfort noted. Will continue to monitor.
[2019-03-08] MEDS: IPRATROPIUM BROM 0.5 MG/2.5 ML VIAL.NEB (ATROVENT) INH SCH ×4 (01:08→19:45)
[2019-03-08] MEDS: LevALBUTEROL HCL 1.25 MG/0.5 ML *CONC.* VIAL.NEB (XOPENEX CONC.) INH SCH ×4 (01:08→19:45)
[2019-03-08] MEDS: KCL 20 mEq in D5NS 1000 mL 1,000 ML IV SCH (03:02)
[2019-03-08] MEDS: LORazepam 2 MG/ML VIAL IVP PRN (03:26)
--- NOTE | 2019-03-08 03:30 | NUR ---
CHG Gave pt CHG bath at this time. Pt tolerated well. Will continue to monitor.
[2019-03-08] MEDS: MORPHINE 4 MG/ML INJ. SYRINGE IVP PRN (03:50)
[2019-03-08] MEDS: PIPERACILLIN/TAZO 3.375/DEX-IS 50 ML IV SCH ×3 (05:41→17:57)
[2019-03-08 05:55] LABS: BASOPHILS % (AUTO) 0.2 % (0.0-2.0); HEMATOCRIT 41.5 % (36-54); HEMOGLOBIN 13.5 g/dL (14.0-18.0); LYMPHOCYTES # (AUTO) 0.7 K/uL (1.0-5.5); LYMPHOCYTES % (AUTO) 11.7 % (20.5-51.5); MEAN CORPUSCULAR HEMOGLOBIN 32 pg (27-31); MEAN CORPUSCULAR HGB CONC 33 % (32-36); MEAN CORPUSCULAR VOLUME 97 fL (79.0-98.0); MONOCYTES # (AUTO) 0.4 K/uL (0.0-1.0); MONOCYTES % (AUTO) 6.2 % (1.7-9.3); NEUTROPHILS # (AUTO) 4.7 K/uL (1.8-7.7); NEUTROPHILS % (AUTO) 81.9 % (40.0-70.0); PLATELET COUNT (AUTO) 213 K/uL (130-430); RED BLOOD CELL COUNT(AUTO) 4.28 MIL/uL (4.2-6.2); RED CELL DISTRIBUTION WIDTH 14.3 % (9.0-15.0); WHITE BLOOD COUNT (AUTO) 5.8 K/uL (4.8-10.8)
[2019-03-08] MEDS: LEVOTHYROXINE SODIUM 0.025 MG TABLET PO SCH (06:02)
[2019-03-08 06:08] LABS: ANION GAP 4 (5-15); CALCIUM 7.3 mg/dL (8.4-11.0); CHLORIDE 108 mmol/L (98-107); CREATININE 0.96 mg/dL (0.55-1.30); GLUCOSE 253 mg/dL (70-99); POTASSIUM 4.5 mmol/L (3.5-5.1); SODIUM SERUM 144 mmol/L (136-145); UREA NITROGEN, BLOOD 29 mg/dL (8-21)
--- NOTE | 2019-03-08 07:07 | NUR ---
Opening Note Received plan of care via sbar from endorsing nurse, ASTON Reyes. Completed bedside round.
[2019-03-08] MEDS: LINEZOLID 300 ML IV SCH ×2 (09:28→21:27)
[2019-03-08] MEDS: MUPIROCIN 2% TOPICAL OINTMENT 22 GM NS SCH ×2 (09:29→21:28)
[2019-03-08] MEDS: methylPREDNISolone SOD SUCC 40 MG/ML VIAL IVP SCH ×2 (09:30→21:27)
[2019-03-08] MEDS: PANTOPRAZOLE SODIUM 40 MG/VIAL (PROTONIX) IVP SCH ×2 (09:30→21:27)
[2019-03-08] MEDS: CARVEDILOL 3.125 MG TABLET (COREG) PO SCH ×2 (09:31→21:28)
[2019-03-08] MEDS: DIGOXIN 0.125 MG TABLET PO SCH (09:32)
[2019-03-08] MEDS: RIVAROXABAN 10 MG TABLET PO SCH (09:33)
--- NOTE | 2019-03-08 13:54 | NUR ---
Nutrition F/U RD reviewed current EMR records including physician and nursing notes, pertinent labs/meds, and care trends. Current Diet Order/Nutrition Support: Jevity 1.2 at 70 ml/hr (goal rate), Free Water Flush: 50 ml Q6h via GT x3 days Per RN, pt has been tolerating TF well, less than 5 ml residual. Pt continues intubated/sedated. No BM noted since 03/05/19 per RN report. Current TF regimen continues adequate/appropriate. RD to F/U in 3-5 days d/t moderate nutritional risk.
--- NOTE | 2019-03-08 13:59 | NUR ---
Dietitian Recommendations * Recommend continuing Jevity 1.2 at 70 ml/hr (goal rate), Free Water Flush: 50 ml Q6H via GT Provides: 2016 kcal/day, 93 gm protein, and 1556 ml free water/day Meets: 101% of estimated caloric needs and 95% of lower end of estimated protein needs LP, RD Please refer to Nutrition F/U for details.
--- NOTE | 2019-03-08 14:16 | NUR ---
Dr. Thomas at bedside. Received renewal for restraints.
--- NOTE | 2019-03-08 15:40 | NUR ---
Found patient on bed with vent tube out of mouth while restrained. Assessed patient and provided supplemental oxygen. O2 stats at 98%. Contacted RT. PT now on Oximizer at 2 L. PT O2 stats at 98%.
--- NOTE | 2019-03-08 15:47 | NUR ---
1540 PT SELF EXTUBATED WHILE WEANING ON CPAP. PLACED ON 2L OXYMIZER. SAT 99% HR 62 RR21. PT TOLERATING. Addendum: 03/08/19 at 1549 by Natalie Castellano RT Amended: Links added.
--- NOTE | 2019-03-08 16:15 | NUR ---
Placed call out to Dr. Green, spoke with exchange.
--- NOTE | 2019-03-08 16:21 | NUR ---
Received call from Dr. Green. Provided back story of PT extubation. Received orders for STAT ABG lab. Order placed.
--- NOTE | 2019-03-08 19:25 | NUR ---
PM SHIFT ASSESSMENT Pt resting in bed. Alert and oriented. O2 via oxymizer @ 2L, tolerating well. Pt being paced on monitor. Gil catheter intact and draining to gravity. IV sites intact, no signs of infiltration. Skin warm and dry. Gtube in place and tubefeeding infusing. Safety precautions in place, will continue to monitor.
--- NOTE | 2019-03-08 21:30 | NUR ---
CHG CHG bath given. Pt tolerated care well.
[2019-03-09] VITALS (25 sets, daily range): BP systolic 115–151
[2019-03-09] MEDS: PIPERACILLIN/TAZO 3.375/DEX-IS 50 ML IV SCH ×4 (00:29→17:28)
[2019-03-09] MEDS: LevALBUTEROL HCL 1.25 MG/0.5 ML *CONC.* VIAL.NEB (XOPENEX CONC.) INH SCH ×4 (00:50→19:36)
[2019-03-09] MEDS: IPRATROPIUM BROM 0.5 MG/2.5 ML VIAL.NEB (ATROVENT) INH SCH ×4 (00:50→19:36)
[2019-03-09] MEDS: KCL 20 mEq in D5NS 1000 mL 1,000 ML IV SCH (03:01)
[2019-03-09 06:03] LABS: HEMATOCRIT 42.6 % (36-54); HEMOGLOBIN 14.1 g/dL (14.0-18.0); MEAN CORPUSCULAR HEMOGLOBIN 32 pg (27-31); MEAN CORPUSCULAR HGB CONC 33 % (32-36); MEAN CORPUSCULAR VOLUME 97 fL (79.0-98.0); PLATELET COUNT (AUTO) 241 K/uL (130-430); RED BLOOD CELL COUNT(AUTO) 4.38 MIL/uL (4.2-6.2); RED CELL DISTRIBUTION WIDTH 14.1 % (9.0-15.0); WHITE BLOOD COUNT (AUTO) 6.2 K/uL (4.8-10.8)
[2019-03-09 06:13] LABS: ANION GAP 0 (5-15); CALCIUM 7.4 mg/dL (8.4-11.0); CHLORIDE 109 mmol/L (98-107); CREATININE 0.83 mg/dL (0.55-1.30); GLUCOSE 235 mg/dL (70-99); POTASSIUM 4.7 mmol/L (3.5-5.1); SODIUM SERUM 139 mmol/L (136-145); UREA NITROGEN, BLOOD 26 mg/dL (8-21)
[2019-03-09 06:20] LABS: ATYPICAL LYMPHOCYTES % 0 % (0-0); BAND % (MANUAL) 6 % (0-6); BASOPHILS % (MANUAL) 0 % (0-2); EOSINOPHILS % (MANUAL) 0 % (0-7); LYMPHOCYTES % (MANUAL) 13 % (20-46); METAMYELOCYTES % 0 % (0-0); MONOCYTES % (MANUAL) 4 % (0-11); MYELOCYTES % 1 % (0-0)
[2019-03-09] MEDS: LEVOTHYROXINE SODIUM 0.025 MG TABLET PO SCH (06:33)
--- NOTE | 2019-03-09 07:00 | NUR ---
RT NOTES PT REFUSED ABG AT THIS TIME. EXPLAINED TO PT THE IMPORTANCE OF ABG POST EXTUBATION. PT NODDED/UNDERSTOOD. HES WILLING TO DO IT LATER. RN CHAPO MADE AWARE.
--- NOTE | 2019-03-09 07:26 | NUR ---
ENDORSEMENT Pt care endorsed to ASTON Elder at bedside using nursing SBAR.
--- NOTE | 2019-03-09 07:40 | NUR ---
AM ASSESSMENT. PT ALERT, ORAL HYGIENE RENDERED, AFEBRILE, CHECKED GASTRIC RESIDUAL, NONE ASPIRATED, IV SITE IN RIGHT UPPER ARM INFILTRATED, AND D/CD, IVF SWITCHED INTO IV IN THE LEFT UPPER ARM, BOTH ARMS EDEMATOUS, PT WROTE WORDS LIKE RESTROOM, TURNED PT TO HIS SIDE TO ALLOW HIM USE A BEDPAN, PT INCONTINENT OF BOWEL, LARGE AMOUNT OF LOOSE BROWN STOOL, GOOD PERICARE DONE, MOVED PT HEAD OF BACK AT 45 DEGREE ANGLE AFTER CARE, RESUMED G TUBE FEEDING.
[2019-03-09] MEDS: methylPREDNISolone SOD SUCC 40 MG/ML VIAL IVP SCH ×2 (09:18→20:56)
[2019-03-09] MEDS: RIVAROXABAN 10 MG TABLET PO SCH (09:19)
[2019-03-09] MEDS: PANTOPRAZOLE SODIUM 40 MG/VIAL (PROTONIX) IVP SCH ×2 (09:19→20:56)
[2019-03-09] MEDS: CARVEDILOL 3.125 MG TABLET (COREG) PO SCH ×2 (09:20→20:56)
[2019-03-09] MEDS: MUPIROCIN 2% TOPICAL OINTMENT 22 GM NS SCH ×2 (09:20→20:57)
[2019-03-09] MEDS: DIGOXIN 0.125 MG TABLET PO SCH (09:20)
--- NOTE | 2019-03-09 09:40 | NUR ---
Spoke to pts regarding a PICC line as pts IV access is in the upper left arm and right upper arm IV site is swollen. woudl liek us to speak to pts daughter for consent. declined to give me her daughters number but said she would have her call us. Bedside RN made aware.
--- NOTE | 2019-03-09 09:46 | NUR ---
Pts daughter called from [place]. Bad telephone connection. She will call back.
[2019-03-09] MEDS: LINEZOLID 300 ML IV SCH ×2 (09:51→20:55)
--- NOTE | 2019-03-09 11:25 | NUR ---
PICC. TIME OUT DONE, PICC NURSE AND CHARGE NURSE WERE IN THE ROOM, PATIENT ALERT, REPOSITIONED IN BED.
--- NOTE | 2019-03-09 11:46 | NUR ---
PICC. NEW PICC IN RIGHT UPPER ARM, CHEST XRAY DONE AT BEDSIDE.
--- NOTE | 2019-03-09 12:00 | NUR ---
NURSING. IV FROM LEFT UPPER ARM REMOVED, PICC LINE TO LEFT UPPER ARM ACCESSIBLE. Addendum: 03/09/19 at 1658 by Jael Red RN PICC LINE IN RIGHT UPPER ARM NOT LEFT
--- NOTE | 2019-03-09 16:00 | NUR ---
NURSING. TURNED AND REPOSITIONED PT IN BED, HE ASKED TO USE A BEDPAN, AND HAD LOOSE STOOL AGAIN, BOTTOM WASHED WITH SOAPY WATER AND PAT DRY, CLEAN SHEET PROVIDED.
--- NOTE | 2019-03-09 18:41 | NUR ---
NURSING. PT CALM, FEEDING VIA GTUBE REMAINS, HEAD OF BED ELEVATED, BUCKNER CATHETER DRAINING CLEAR URINE.
[2019-03-10] VITALS (20 sets, daily range): BP systolic 118–146
[2019-03-10] MEDS: IPRATROPIUM BROM 0.5 MG/2.5 ML VIAL.NEB (ATROVENT) INH SCH ×4 (00:45→19:47)
[2019-03-10] MEDS: LevALBUTEROL HCL 1.25 MG/0.5 ML *CONC.* VIAL.NEB (XOPENEX CONC.) INH SCH ×4 (00:45→19:47)
[2019-03-10] MEDS: PIPERACILLIN/TAZO 3.375/DEX-IS 50 ML IV SCH ×4 (06:00→17:18)
[2019-03-10] MEDS: LEVOTHYROXINE SODIUM 0.025 MG TABLET PO SCH (06:00)
[2019-03-10 06:48] LABS: BASOPHILS % (AUTO) 0.1 % (0.0-2.0); HEMATOCRIT 42.4 % (36-54); LYMPHOCYTES # (AUTO) 0.5 K/uL (1.0-5.5); LYMPHOCYTES % (AUTO) 10.1 % (20.5-51.5); MEAN CORPUSCULAR HEMOGLOBIN 33 pg (27-31); MEAN CORPUSCULAR HGB CONC 33 % (32-36); MONOCYTES # (AUTO) 0.3 K/uL (0.0-1.0); MONOCYTES % (AUTO) 6.4 % (1.7-9.3); NEUTROPHILS % (AUTO) 83.4 % (40.0-70.0); PLATELET COUNT (AUTO) 250 K/uL (130-430); RED CELL DISTRIBUTION WIDTH 14.2 % (9.0-15.0); WHITE BLOOD COUNT (AUTO) 4.8 K/uL (4.8-10.8)
[2019-03-10 07:04] LABS: MEAN CORPUSCULAR VOLUME 99 fL (79.0-98.0)
[2019-03-10 07:07] LABS: ANION GAP 4 (5-15); CALCIUM 7.5 mg/dL (8.4-11.0); CHLORIDE 106 mmol/L (98-107); CREATININE 0.83 mg/dL (0.55-1.30); GLUCOSE 306 mg/dL (70-99); POTASSIUM 4.5 mmol/L (3.5-5.1); SODIUM SERUM 138 mmol/L (136-145); UREA NITROGEN, BLOOD 29 mg/dL (8-21)
--- NOTE | 2019-03-10 07:25 | NUR ---
Opening Note Received bedside report from endorsing RN for continuation of care. Received patient awake in bed, no signs or symptoms of acute distress noted. Patient notified of attempt to call . Bed locked in lowest position, bed alarm on, and call light within reach.
--- NOTE | 2019-03-10 07:25 | NUR ---
Endorsement Pt care endorsed to ASTON Santoyo using nursing SBAR.
[2019-03-10] MEDS: LINEZOLID 300 ML IV SCH (08:28)
[2019-03-10] MEDS: methylPREDNISolone SOD SUCC 40 MG/ML VIAL IVP SCH (08:29)
[2019-03-10] MEDS: PANTOPRAZOLE SODIUM 40 MG/VIAL (PROTONIX) IVP SCH ×2 (08:29→20:38)
[2019-03-10] MEDS: DIGOXIN 0.125 MG TABLET PO SCH (08:30)
[2019-03-10] MEDS: CARVEDILOL 3.125 MG TABLET (COREG) PO SCH ×2 (08:30→20:39)
[2019-03-10] MEDS: RIVAROXABAN 10 MG TABLET PO SCH (08:31)
[2019-03-10] MEDS: MUPIROCIN 2% TOPICAL OINTMENT 22 GM NS SCH (08:32)
--- NOTE | 2019-03-10 09:30 | NUR ---
Dr. Green in to see patient. New orders received and carried out.
--- NOTE | 2019-03-10 11:26 | NUR ---
Patient awake in bed, watching TV. No signs or symptoms of acute distress noted. at bedside. Bed locked in lowest position, bed alarm on, and call light within reach.
--- NOTE | 2019-03-10 14:48 | NUR ---
Provided facial shaving for patient. No signs or symptoms of acute distress. Patient tolerated well.
--- NOTE | 2019-03-10 15:45 | NUR ---
Spoke with Dr. Houser for orders. Per Dr. Houser, patient is stable to transfer to telemetry unit. Patient will be monitored in ICU until telemetry bed and nurse becomes available.
--- NOTE | 2019-03-10 17:30 | NUR ---
Dr. Anne at bedside examining patient. New orders received.
--- NOTE | 2019-03-10 19:25 | NUR ---
Transfer to Tele Patient transferred to telemetry unit room 100A via hospital bed, continuous cardiac surgeon, and oxygen using ACLS protocol. Two ACLS RNs present at all times. No signs or symptoms of acute distress noted. Patient tolerated well. Endorsed bedside report to Tamar FONSECA RN using SBAR approach for continuation of care.
[2019-03-10] MEDS: CEFEPIME 1 GM in D5W 50 ML IV SCH (20:34)
--- NOTE | 2019-03-10 20:35 | NUR ---
Opening notes Received pt from PROGRAM SUPPORT CLERK Natanael. Pt AAOx4. VSS, afebrile. No s/s distress or discomfort noted. 2L via oximizer 99% saturation. GT feeding Jevity 1.2 running as ordered, no residual noted. PICC line on KELSEY good blood return. Contact isolation maintained. Safety measures in place. Call light/items within reach. To monitor.
[2019-03-10] MEDS: PREDNISONE 20 MG TABLET GT SCH (20:39)
--- NOTE | 2019-03-10 23:00 | NUR ---
Rounds Pt awake, no s/s distress, HOB maintained elevated. Call light/items within reach. To monitor.
[2019-03-11] MEDS: IPRATROPIUM BROM 0.5 MG/2.5 ML VIAL.NEB (ATROVENT) INH SCH ×4 (00:08→19:47)
[2019-03-11] MEDS: LevALBUTEROL HCL 1.25 MG/0.5 ML *CONC.* VIAL.NEB (XOPENEX CONC.) INH SCH ×4 (00:08→19:48)
[2019-03-11 00:39] VITALS: BP_SYST 121
--- NOTE | 2019-03-11 01:50 | NUR ---
Rounds Pt awake, no distress noted, repositioned in bed. To monitor.
--- NOTE | 2019-03-11 03:30 | NUR ---
Rounds Pt asleep, no s/s distress noted. O2 via oximizer on. GT feeding running as ordered. HOB maintained elevated. Safety measures in place. To monitor.
--- NOTE | 2019-03-11 05:25 | NUR ---
Rounds Pt asleep. No s/s distress noted. O2 2L via oximizer on. Safety measures on. Call light within easy reach. To monitor.
[2019-03-11] MEDS: LEVOTHYROXINE SODIUM 0.025 MG TABLET PO SCH (07:00)
--- NOTE | 2019-03-11 07:00 | NUR ---
Closing notes Pt alert, awake, no s/s distress noted. Pt on O2 2L via oximizer. GT feeding running as ordered, tolerating well. Water flushes given. PICC KELSEY dressing C/D/I. Gil cath to gravity with clear, yellow urine. Call light/items within reach. Pt requesting to sit up on chair, to endorse to AM nurse.
--- NOTE | 2019-03-11 07:45 | NUR ---
Opening note Patient resting in bed A/O x4, using the bedpan at this time. 1 Loose BM noted, skin care provided, no skin breakdown noted. Noted with crackles on bases, O2 sat 97% on 2lpm, No SOB. No complaints of pain. GT site clean and dry, Gil cath in place, draining yellow urine. PICC line in place, patent, no bleeding at site. Educated patient on the call light system, and communication board, clipboard with paper at bedside for patient use, patient verbalized understanding. On Contact Isolation,aspiration, and fall precautions, reinforced. Bed in lowest position, call light within reach, bed alarm on.
[2019-03-11 07:46] VITALS: BP_SYST 137
[2019-03-11] MEDS: PANTOPRAZOLE SODIUM 40 MG/VIAL (PROTONIX) IVP SCH ×2 (09:13→20:48)
[2019-03-11] MEDS: CEFEPIME 1 GM in D5W 50 ML IV SCH ×2 (09:14→20:47)
[2019-03-11] MEDS: PREDNISONE 20 MG TABLET GT SCH ×2 (09:15→20:47)
[2019-03-11] MEDS: DIGOXIN 0.125 MG TABLET PO SCH (09:15)
[2019-03-11] MEDS: CARVEDILOL 3.125 MG TABLET (COREG) PO SCH ×2 (09:16→20:48)
[2019-03-11] MEDS: RIVAROXABAN 10 MG TABLET PO SCH (09:17)
--- NOTE | 2019-03-11 10:52 | NUR ---
DC Planning: s/w pt's spouse,Tod #[phone] for a possible transfer to snf. The pt. resumed PT today, able to stand at bedside per ABDOUL Roldan. The pt. will need continue therapy. Zaheerjayro requested pt going to snf first choice is [facility], and second is [facility]. DR. Houser made aware, stated he will reeval for dcp.
--- NOTE | 2019-03-11 11:20 | NUR ---
Rounds: Patient is up on the chair, assisted by Physical Therapy.
--- NOTE | 2019-03-11 12:15 | NUR ---
Rounds Patient sat up in chair with PT, returned back to bed at this time, tolerated well. No complaints of pain, No SOB. GT in place and infusing, tolerating well. IV in place and infusing, no adverse side effects. On contact isolation, aspiration, and fall precautions, reinforced. Communication board with patient, bed in lowest position, bed alarm on, call light within reach.
[2019-03-11 12:54] VITALS: BP_SYST 131
[2019-03-11 15:13] VITALS: BP_SYST 123
--- NOTE | 2019-03-11 16:26 | NUR ---
Home Health: Received call from Jodi with [facility] patient is under their service.
--- NOTE | 2019-03-11 18:06 | NUR ---
Closing note Patient sitting up in bed at this time, A/O x4,has bilateral hand bruises red/brown in color. O2 sat 98% on 2lpm, No SOB. No complaints of pain. GT feeding tolerating well, no residual noted, Gil cath in place, draining yellow urine. PICC line in place, patent, no bleeding at site. Educated patient on the call light system, and communication board, clipboard with paper at bedside for patient use, patient verbalized understanding. On Contact Isolation,aspiration, and fall precautions, reinforced. Bed in lowest position, call light within reach, bed alarm on. All needs met at this time
--- NOTE | 2019-03-11 19:30 | NUR ---
Initial Note Received patient asleep but easily arousable. Awake, alert and oriented. Uses pen and paper to communicate. Bedrest. On O2 at 2L/min via NC and oxymizer. No SOB noted and denies any pain or n/v at this time. Saline lock, PICC on MISA double lumen. Flushed each port with saline. NPO. GT feeding infusing. Skin intact, noted ecchymoses on bilateral hands and no peripheral edema noted. Repositioned. VS taken and stable. SCDs off as requested. Care and monitoring will be provided. Call light within reach. Bed alarm on and at lowest position at all times. Needs attended. Kept warm and comfortable. Isolation, fall precautions observed. Paced on monitor.
[2019-03-11 20:00] VITALS: BP_SYST 133
--- NOTE | 2019-03-11 20:00 | NUR ---
Dr. Mik Houser came and saw the patient. New orders were made.
--- NOTE | 2019-03-11 20:45 | NUR ---
RN Note Due meds given via GT. No residual noted. Flushed free water. Repositioned. Kept clean, dry and comfortable.
--- NOTE | 2019-03-11 23:00 | NUR ---
RN Note Patient sleeping at this time. No SOB or grimacing noted.
[2019-03-12 00:46] VITALS: BP_SYST 123
--- NOTE | 2019-03-12 01:00 | NUR ---
RN Note Awake and alert, watching TV. No complaints at this time. Repositioned. Kept warm and comfortable.
[2019-03-12] MEDS: IPRATROPIUM BROM 0.5 MG/2.5 ML VIAL.NEB (ATROVENT) INH SCH ×3 (01:37→14:35)
[2019-03-12] MEDS: LevALBUTEROL HCL 1.25 MG/0.5 ML *CONC.* VIAL.NEB (XOPENEX CONC.) INH SCH ×3 (01:37→14:35)
--- NOTE | 2019-03-12 04:00 | NUR ---
RN Note Patient awake and alert. Asked to be massaged on his back, repositioned. Kept warm and comfortable.
[2019-03-12] MEDS: LORazepam 2 MG/ML VIAL IVP PRN (06:03)
[2019-03-12] MEDS: LEVOTHYROXINE SODIUM 0.025 MG TABLET PO SCH (06:03)
--- NOTE | 2019-03-12 06:23 | NUR ---
End Note Afebrile. VS stable. No complain of pain, SOB or n/v throughout the night. Asked for something to sleep or calm him down, medicated as requested. On O2 at 2L/min oxymizer. PICC line dressing CDI. GT feeding infusing without any residual. Free water flushes done. Had loose BM. Repositioned. AM labs today and [facility]. Care and monitoring provided per protocol. Call light within reach. Bed alarm on and at lowest position at all times. Needs attended. Kept warm and comfortable. Paced with BBB and A flutter on monitor.
[2019-03-12 06:29] LABS: BASOPHILS % (AUTO) 0.5 % (0.0-2.0); EOSINOPHILS % (AUTO) 0.5 % (0.0-4.0); HEMATOCRIT 43.4 % (36-54); HEMOGLOBIN 14.4 g/dL (14.0-18.0); LYMPHOCYTES # (AUTO) 1.1 K/uL (1.0-5.5); LYMPHOCYTES % (AUTO) 12.9 % (20.5-51.5); MEAN CORPUSCULAR HEMOGLOBIN 33 pg (27-31); MEAN CORPUSCULAR HGB CONC 33 % (32-36); MEAN CORPUSCULAR VOLUME 98 fL (79.0-98.0); MONOCYTES # (AUTO) 0.7 K/uL (0.0-1.0); MONOCYTES % (AUTO) 8.6 % (1.7-9.3); NEUTROPHILS # (AUTO) 6.5 K/uL (1.8-7.7); NEUTROPHILS % (AUTO) 77.5 % (40.0-70.0); PLATELET COUNT (AUTO) 253 K/uL (130-430); RED BLOOD CELL COUNT(AUTO) 4.44 MIL/uL (4.2-6.2); RED CELL DISTRIBUTION WIDTH 14.3 % (9.0-15.0); WHITE BLOOD COUNT (AUTO) 8.3 K/uL (4.8-10.8)
[2019-03-12 06:55] LABS: ANION GAP 3 (5-15); CALCIUM 7.9 mg/dL (8.4-11.0); CHLORIDE 107 mmol/L (98-107); GLUCOSE 194 mg/dL (70-99); POTASSIUM 4.7 mmol/L (3.5-5.1); SODIUM SERUM 140 mmol/L (136-145); UREA NITROGEN, BLOOD 30 mg/dL (8-21)
--- NOTE | 2019-03-12 07:55 | NUR ---
opening note patient is resting in bed, A&Ox3, assessment completed, educated on plan of care and call light system, patient nodded head and was able to state "okay" softly, patient mainly communicates through paper and pen, patient denies any pain at this time, repositioned patient with assist, PICC line intact with no signs of infiltration or irritation, g tube in tact with Jevity 1.2 running at 70ml/hr, sánchez intact, oximizer on 2L, no other needs addressed at this time, bed in the lowest position, three side rails up, call light within reach, bed alarm on, contact precautions in place, fall/safety and aspiration precautions in place.
[2019-03-12 08:41] VITALS: BP_SYST 124
[2019-03-12] MEDS: CEFEPIME 1 GM in D5W 50 ML IV SCH (08:44)
[2019-03-12] MEDS: PANTOPRAZOLE SODIUM 40 MG/VIAL (PROTONIX) IVP SCH (08:44)
[2019-03-12] MEDS: CARVEDILOL 3.125 MG TABLET (COREG) PO SCH (08:45)
[2019-03-12] MEDS: DIGOXIN 0.125 MG TABLET PO SCH (08:45)
[2019-03-12] MEDS: PREDNISONE 20 MG TABLET GT SCH (08:45)
[2019-03-12] MEDS: RIVAROXABAN 10 MG TABLET PO SCH (08:46)
--- NOTE | 2019-03-12 09:46 | NUR ---
rounds patient is resting in bed watching tv, patient denies any pain at this time, no signs of distress, no other needs addressed at this time, contact precautions in place, fall/safety precautions in place.
[2019-03-12 10:22] VITALS: BP_SYST 124
--- NOTE | 2019-03-12 11:25 | NUR ---
Discharge Planning Patient's information faxed to [facility] for eval
--- NOTE | 2019-03-12 11:53 | NUR ---
Jevity 1.2 bottle changed patient is resting in bed watching tv, tube feeding bottle changed, patient tolerated well, no other needs addressed at this time, no signs of distress, fall/safety precautions in place, contact precautions in place.
--- NOTE | 2019-03-12 12:13 | NUR ---
DC Planning: Elva Liaison from [facility] came in to evaluate the pt. for admission. The pt. is accepted and she will release the only isolation bed once dr. Houser cleared the pt. for discharge. CM is waiting for the response from the MD.-- Sarah CLANCY made aware.
[2019-03-12 12:33] VITALS: BP_SYST 121
--- NOTE | 2019-03-12 13:15 | NUR ---
DC Planning: [facility], bed assigned by Elva, iso bed # 1102 A available after 5 pm. RN to report #[id number]. DC package delivered to [facility] unit. ASTON Smith made aware and to get the final dc order from dr. Houser.
--- NOTE | 2019-03-12 13:30 | NUR ---
rounds patient is resting in bed, at the bedside, informed him that he will be transferring to [facility] today, patient nodded in agreement and verbalized understanding, patient is concerned about his loose bowel movements, will let Dr Houser know when he does his rounds, offered to suction patient but patient refused at this time, no other needs addressed at this time, contact precautions in place, fall/safety precautions in place.
--- NOTE | 2019-03-12 13:44 | NUR ---
Discharge Planning Assisting Suzie SEGUNDO Arranged [facility], , for 5pm To [facility] rehab room 1102A. Notified in room and Charge nurse Rani at nurses' station Placed packet at nurses' station.
--- NOTE | 2019-03-12 14:34 | NUR ---
Dr Houser rounds assessed patient in room, informed him about the patient's worry about his loose bowel movements, he talked to the patient about it, gave me orders to d/carlitos sánchez before he gets transferred out and to leave the PICC line in, informed that patient and about this and they verbalized understanding. Addendum: 03/12/19 at 1511 by Sarah Singh RN late entry asked patient about removing sánchez per MD order, patient wrote and states that they wanted to wait closer to his pickup time.
[2019-03-12 16:37] VITALS: BP_SYST 124; BP_SYST 127
--- NOTE | 2019-03-12 17:15 | NUR ---
PT TRANSFERRED Report given to ASTON Sales at [facility]. Transfer packet with Transfer Orders and Medication Reconciliation form given to EMT with report. Exitcare provided. [facility] ID band removed, replaced with ID band with pt's name and . PICC line left in per MD order, intact and dressing applied. All belongings sent with patient. Patient left floor via gurney escorted by EMT in no distress.
== END 2019-03-12 17:15 | DRG 871 ==
LOC: SMU 14:36 → SIC 03-04 10:49 → STU 03-10 19:39
PROVIDERS: ADMIT Family Medicine; ATTEND Family Medicine
PROC: 5A1935Z Respiratory Ventilation, Less than 24 Consecutive Hours (ICD-10-PCS; principal; 2019-03-04)
PROC: 0BH17EZ Insertion of Endotracheal Airway into Trachea, Via Natural or Artificial Opening (ICD-10-PCS; 2019-03-04)
PROC: 0BH17EZ Insertion of Endotracheal Airway into Trachea, Via Natural or Artificial Opening (ICD-10-PCS; 2019-03-05)
PROC: 5A1945Z Respiratory Ventilation, 24-96 Consecutive Hours (ICD-10-PCS; 2019-03-05)
PROC: 02HV33Z Insertion of Infusion Device into Superior Vena Cava, Percutaneous Approach (ICD-10-PCS; 2019-03-08)
PROC: B548ZZA Ultrasonography of Superior Vena Cava, Guidance (ICD-10-PCS; 2019-03-08)
DX: A41.9 Sepsis, unspecified organism (principal); J69.0 Pneumonitis due to inhalation of food and vomit; J96.00 Acute respiratory failure, unspecified whether with hypoxia or hypercapnia; R65.21 Severe sepsis with septic shock; J15.1 Pneumonia due to Pseudomonas; J15.6 Pneumonia due to other Gram-negative bacteria; K94.23 Gastrostomy malfunction; G71.2 Congenital myopathies; I48.0 Paroxysmal atrial fibrillation; E03.9 Hypothyroidism, unspecified; G71.09 Other specified muscular dystrophies; I12.9 Hypertensive chronic kidney disease with stage 1 through stage 4 chronic kidney disease, or unspecified chronic kidney disease; I48.2 Chronic atrial fibrillation; J45.909 Unspecified asthma, uncomplicated; N18.9 Chronic kidney disease, unspecified; R13.12 Dysphagia, oropharyngeal phase; I95.9 Hypotension, unspecified; Y83.8 Other surgical procedures as the cause of abnormal reaction of the patient, or of later complication, without mention of misadventure at the time of the procedure; Y82.8 Other medical devices associated with adverse incidents; Z87.891 Personal history of nicotine dependence; Z95.0 Presence of cardiac pacemaker; Z22.322 Carrier or suspected carrier of Methicillin resistant Staphylococcus aureus
CPT/HCPCS: 36415; 36600; 71045; 80048; 80053; 81000-TC; 82803-TC; 82962; 83605; 83880; 84484; 85007; 85025; 85027; 87040-TC; 87070-TC; 87081; 87086; 87186-TC; 87205-TC; 94002; 94003; 94640; 94760; 97110-GP; 97116-GP; 97530-GP; C1751; C9113; J0330; J0456; J0692; J0696; J1030; J1885; J1940; J2020; J2060; J2270; J2543; J3370; J3465; J7040; J7050; J7060; J7512; J7612